=== PATIENT | female | born 1990 | race African-American/Black ===

== ENCOUNTER 2018-02-20 19:28 | Inpatient (IN) | payer BC, MEDICAID ==
[~2018-02-20] VITALS: Ht 157.5 cm
[2018-02-20] MEDS ORDERED: DEXT 5%/LR + PITOCIN 20UNITS/L 1,000 ML IV SCH (20:27)
[2018-02-20] MEDS ORDERED: BUTORPHANOL TARTRATE 2 MG/ML VIAL IV PRN (20:30)
[2018-02-20] MEDS ORDERED: METHYLERGONOVINE MALEATE 0.2 MG/ML IM PRN (20:30)
[2018-02-20] MEDS ORDERED: LIDOCAINE HCL 1% 20ML VIAL (Pyxis) INJ INFIL SCH (20:30)
[2018-02-20] MEDS ORDERED: MISOPROSTOL 100MCG TABLET VG SCH (20:30)
[2018-02-20] MEDS ORDERED: CARBOPROST TROMETHAMINE 250 MCG/ML AMPUL IM PRN (20:30)
[2018-02-20] MEDS ORDERED: NALOXONE HCL 0.4 MG/ML 1ML VIAL IM PRN (20:30)
[2018-02-20] MEDS: LACTATED RINGERS 1,000 ML IV SCH ×2 (20:57→22:34)
[2018-02-20] MEDS ORDERED: PENICILLIN G POTASSIUM 5 MMU in DEXT 5% WATER 100 ML IV SCH (21:00)
[2018-02-20 21:26] LABS: BASOPHILS % 0.4 % (0.0-2.0); HEMATOCRIT. 33.9 % (36.0-48.0); HEMOGLOBIN. 11.2 g/dL (12.0-16.0); LYMPHOCYTES % 19.2 % (20.0-50.0); MEAN CORPUSCULAR HEMOGLOBIN 25.8 pg (28.0-32.0); MEAN PLATELET VOLUME 9.3 fl (7.4-10.4); MONOCYTES % 10.1 % (2.0-8.0); NEUTROPHILS % 69.3 % (40.0-76.0); PLATELET 198 x1000/uL (130-400); RED BLOOD CELL COUNT 4.35 mill/uL (4.2-5.4); RED CELL DISTRIBUTION WIDTH 15.9 % (11.6-14.6)
[2018-02-20 21:29] LABS: CLARITY URINE CLEAR (CLEAR); COLOR URINE YELLOW (YELLOW); KETONES URINE NEGATIVE (NEGATIVE); LEUKOCYTE ESTERASE URINE NEGATIVE (NEGATIVE); NITRITE URINE NEGATIVE (NEGATIVE); OCCULT BLOOD URINE 1+ (NEGATIVE); PH URINE 6.5 (4.5-8.0); PROTEIN URINE NEGATIVE (NEGATIVE); SPECIFIC GRAVITY URINE 1.016 (1.005-1.030)
[2018-02-20 21:35] LABS: PARTIAL THROMBOPLASTIN TIME 27.8 sec (23.4-31.0)
[2018-02-20 21:41] LABS: *BARBITURATES SCREEN URINE NEGATIVE (NEGATIVE); *COCAINE SCREEN URINE NEGATIVE (NEGATIVE); CANNABINOID URINE SCREEN NEGATIVE (NEGATIVE); METHADONE URINE SCREEN NEGATIVE (NEGATIVE); OPIATES URINE SCREEN NEGATIVE (NEGATIVE); PHENCYCLIDINE URINE SCREEN NEGATIVE (NEGATIVE)
[2018-02-20 21:42] LABS: *AMPHETAMINES SCREEN URINE NEGATIVE (NEGATIVE); *BENZODIAZEPINES SCREEN URINE NEGATIVE (NEGATIVE)
[2018-02-20 22:04] LABS: HEPATITIS B SURFACE ANTIGEN NEGATIVE; RUBELLA IGG 38.5 IU/mL (4.99-10)
[2018-02-20] MEDS ORDERED: BUPIVACAINE HCL/PF 0.25% (2.5MG/ML) 10ML ONE (22:16)
[2018-02-20] MEDS ORDERED: BUPIVACAINE HCL/NS/PF EPIDURAL 100 ML EP ONE (22:16)
[2018-02-21] MEDS: PENICILLIN G POTASSIUM 2.5 MMU in DEXTROSE 5% WATER 50 ML IV SCH ×2 (04:22→08:22)
[2018-02-21] MEDS ORDERED: BUPIVACAINE HCL/PF 0.25% (2.5MG/ML) 10ML ONE (04:42)
[2018-02-21] MEDS ORDERED: BUPIVACAINE HCL/NS/PF EPIDURAL 100 ML EP ONE (04:46)
[2018-02-21] MEDS ORDERED: DEXT 5%/LR + PITOCIN 20UNITS/L 1,000 ML IV SCH (09:26)
[2018-02-21] MEDS ORDERED: GLYCERIN/WITCH HAZEL LEAF MEDICATED PAD TOP PRN (09:30)
[2018-02-21] MEDS ORDERED: LANOLIN OINT 0.25 GM TUBE TOP PRN (09:30)
[2018-02-21] MEDS ORDERED: ACETAMINOPHEN WITH CODEINE 300/30MG TABLET PO PRN ×2 (09:30)
[2018-02-21] MEDS ORDERED: RHO(D) IMMUNE GLOBULIN 300 MCG/SYR IM PRN (09:30)
[2018-02-21] MEDS ORDERED: HEMORRHOIDAL SUPP PR PRN (09:30)
[2018-02-21] MEDS ORDERED: TETANUS, DIPHTHERIA, PERTUSSIS VAC/PF 0.5ML (>7YR OLD) IM ONE (09:30)
[2018-02-21] MEDS ORDERED: DIPHENHYDRAMINE 25MG CAPSULE PO PRN (09:30)
[2018-02-21] MEDS ORDERED: BISACODYL 10MG SUPP PR PRN (09:30)
[2018-02-21 12:00] VITALS: BP 113/59
[2018-02-21 12:30] VITALS: BP 124/69
[2018-02-21] MEDS: IBUPROFEN 400MG TABLET PO PRN ×2 (14:38→23:31)
[2018-02-21 16:30] VITALS: BP 128/62
[2018-02-21] MEDS: SIMETHICONE 80MG TABLET CHEW PO SCH ×2 (18:23→23:31)
[2018-02-21 20:00] VITALS: BP 130/69
[2018-02-21] MEDS: DOCUSATE SODIUM 100MG CAPSULE PO SCH (23:30)
[2018-02-21 23:54] VITALS: BP 134/88
[2018-02-22 07:05] LABS: BASOPHILS % 0.3 % (0.0-2.0); EOSINOPHILS % 1.2 % (0.0-5.0); HEMATOCRIT. 27.1 % (36.0-48.0); LYMPHOCYTES % 15.5 % (20.0-50.0); MEAN CORPUSCULAR HEMOGLOBIN 25.8 pg (28.0-32.0); MEAN CORPUSCULAR VOLUME 78.2 fL (81.0-99.0); MEAN PLATELET VOLUME 9.3 fl (7.4-10.4); MONOCYTES % 7.9 % (2.0-8.0); NEUTROPHILS % 75.1 % (40.0-76.0); PLATELET 147 x1000/uL (130-400); RED BLOOD CELL COUNT 3.47 mill/uL (4.2-5.4); RED CELL DISTRIBUTION WIDTH 15.4 % (11.6-14.6)
[2018-02-22 09:00] VITALS: BP 115/73
[2018-02-22] MEDS: SIMETHICONE 80MG TABLET CHEW PO SCH ×2 (09:00→21:33)
[2018-02-22] MEDS ORDERED: PRENATAL VIT/FE FUMARATE/FA TABLET PO SCH (09:00)
[2018-02-22] MEDS ORDERED: FERROUS SULFATE 325MG TABLET PO SCH (12:10)
[2018-02-22 16:18] VITALS: BP 126/79
[2018-02-22 19:30] VITALS: BP 123/65
[2018-02-22] MEDS: DOCUSATE SODIUM 100MG CAPSULE PO SCH (21:33)
[2018-02-22 22:48] VITALS: BP 118/73
[2018-02-23 08:30] VITALS: BP 109/73
== END 2018-02-23 11:30 | disposition home or self-care (01) | DRG 775 ==
LOC: L&D 19:28 → OBSVTOIN 02-21 08:37 → 7EST PP/OB 02-21 11:52
PROVIDERS: ADMIT Obstetrics & Gynecology; ATTEND Obstetrics & Gynecology
PROC: 3E0R3BZ Introduction of Anesthetic Agent into Spinal Canal, Percutaneous Approach (ICD-10-PCS; 2018-02-21)
PROC: 00HU33Z Insertion of Infusion Device into Spinal Canal, Percutaneous Approach (ICD-10-PCS; 2018-02-21)
PROC: 10E0XZZ Delivery of Products of Conception, External Approach (ICD-10-PCS; principal; 2018-02-21 08:37)
DX: O99.02 Anemia complicating childbirth (principal); Z37.0 Single live birth; D64.9 Anemia, unspecified; Z3A.38 38 weeks gestation of pregnancy
CPT/HCPCS: 36415; 80305; 81003; 85025; 85610; 85730; 86592; 86703; 86762; 86850; 86900; 87340; G0378; J0595; J2540; J2590; J3490; J7060; J7120; A4315